=== PATIENT | female | born 1990 | race Caucasian/White ===

== ENCOUNTER 2016-10-09 23:36 | Inpatient (IN) | payer MEDICAID ==
[~2016-10-09] VITALS: Ht 152.4 cm; Wt 68.5 kg
[~2016-10-09 23:36] MED LIST: BENZ1TAB10 PO; DIVA250T25 PO; FERR-89 PO; LEVE500T53 PO; LITH300C3 PO; TRAZ-147 PO
[2016-10-10 00:24] LABS: ANION GAP 8 mmol/L (8-16); CARBON DIOXIDE 26 mmol/L (22-29); CHLORIDE 107 mmol/L (98-107); CREATININE 0.69 mg/dL (0.60-1.30); GLOMERULAR FILTR. RATE CALC > 60 mL/min (>60); POTASSIUM 3.9 mmol/L (3.5-5.1); SODIUM SERUM 141 mmol/L (136-145); UREA NITROGEN, BLOOD 15 mg/dL (7-18)
[2016-10-10 00:30] LABS: ALANINE AMINOTRANSFERASE 29 U/L (12-78); ALBUMIN 3.3 g/dL (3.4-5.0); ASPARTATE AMINOTRANSFERASE 13 U/L (15-37); BILIRUBIN,TOTAL 0.2 mg/dL (0.1-1.0); TOTAL PROTEIN, SERUM 6.3 g/dL (6.4-8.2)
[2016-10-10 00:34] LABS: BASOPHILS % (AUTO) 0.5 % (0.0-2.0); EOSINOPHILS % (AUTO) 5.5 % (1.0-6.0); HEMATOCRIT 33.9 % (36-46); HEMOGLOBIN 10.8 g/dL (12.0-16.0); LYMPHOCYTES % (AUTO) 47.4 % (22.0-44.0); MEAN CORPUSCULAR HEMOGLOBIN 25.9 pg (26.0-34.0); MEAN CORPUSCULAR HGB CONC 31.9 G/dL (31.0-37.0); MEAN CORPUSCULAR VOLUME 81 fL (80-100); MONOCYTES # (AUTO) 0.2 K/uL (0.1-1.0); MONOCYTES % (AUTO) 3.6 % (2.0-9.0); NEUTROPHILS # (AUTO) 2.8 K/uL (1.8-7.7); PLATELET COUNT (AUTO) 148 K/uL (150-450); RED BLOOD CELL COUNT(AUTO) 4.17 MIL/uL (4.00-5.20); RED CELL DISTRIBUTION WIDTH 13.5 % (11.5-14.5); WHITE BLOOD COUNT (AUTO) 6.4 K/uL (4.5-11.0)
[2016-10-10 08:43] VITALS: BP 127/96
[2016-10-10] MEDS ORDERED: IBUPROFEN 400 MG TABLET PO PRN (10:00)
[2016-10-10] MEDS ORDERED: ACETAMINOPHEN 325 MG TABLET PO PRN (10:00)
[2016-10-10] MEDS: FERROUS SULFATE 325 MG EC TABLET PO SCH ×2 (11:33→17:33)
[2016-10-10 12:52] LABS: ADD UA MICROSCOPIC NO; APPEARANCE,URINE CLEAR (CLEAR); GLUCOSE, URINE (UA) NEGATIVE (NEGATIVE); KETONES,URINE NEGATIVE (NEGATIVE); LEUKOCYTE ESTERASE ,URINE NEGATIVE (NEGATIVE); OCCULT BLOOD,URINE NEGATIVE (NEGATIVE); PH,URINE 7.5 (5.0-8.0); PROTEIN,URINE NEGATIVE (NEGATIVE)
[2016-10-10 17:19] VITALS: BP 123/85
[2016-10-10] MEDS ORDERED: DIVA500T35 PO (17:24)
[2016-10-10] MEDS: LevETIRAcetam 500 MG TABLET PO SCH (17:33)
[2016-10-11 00:25] VITALS: BP 132/71
[2016-10-11] MEDS: HALOPERIDOL 5 MG TABLET PO PRN ×2 (00:29→20:15)
[2016-10-11] MEDS: LORazepam 2 MG TABLET PO PRN ×2 (00:29→20:15)
[2016-10-11] MEDS: FERROUS SULFATE 325 MG EC TABLET PO SCH ×3 (06:34→16:16)
[2016-10-11 07:16] LABS: THYROID STIMULATING HORMONE 2.15 uIU/mL (0.36-3.74)
[2016-10-11 08:01] VITALS: BP 135/77
[2016-10-11] MEDS: LevETIRAcetam 500 MG TABLET PO SCH ×2 (09:22→16:16)
[2016-10-11 16:00] VITALS: BP 126/96
[2016-10-11] MEDS: MUPIROCIN CALCIUM 2% 22 GM OINTMENT NASAL SCH (16:16)
[2016-10-12] MEDS: FERROUS SULFATE 325 MG EC TABLET PO SCH ×3 (06:36→17:17)
[2016-10-12 06:56] VITALS: BP 103/60
[2016-10-12 08:01] VITALS: BP 126/81
[2016-10-12] MEDS: LevETIRAcetam 500 MG TABLET PO SCH ×2 (08:40→16:28)
[2016-10-12] MEDS: MUPIROCIN CALCIUM 2% 22 GM OINTMENT NASAL SCH ×2 (10:02→16:28)
[2016-10-12 17:12] VITALS: BP 112/74
[2016-10-12] MEDS: LORazepam 2 MG TABLET PO PRN (20:22)
[2016-10-12] MEDS: TraZODone HCL 100 MG TABLET PO SCH (21:00)
[2016-10-12] MEDS: PALIPERIDONE 3 MG ER TABLET PO SCH (21:00)
[2016-10-13] MEDS: FERROUS SULFATE 325 MG EC TABLET PO SCH ×3 (06:59→16:23)
[2016-10-13 07:04] VITALS: BP 111/59
[2016-10-13 08:01] VITALS: BP 130/98
[2016-10-13] MEDS: LevETIRAcetam 500 MG TABLET PO SCH ×2 (08:22→16:23)
[2016-10-13] MEDS: BENZTROPINE MESYLATE 1 MG TABLET PO SCH ×2 (08:22→16:23)
[2016-10-13] MEDS: MUPIROCIN CALCIUM 2% 22 GM OINTMENT NASAL SCH ×2 (08:23→16:23)
[2016-10-13] MEDS: LITHIUM CITRATE SOLUTION 8 MEQ/5 ML [8 MEQ = 300 MG] UDCUP PO SCH ×2 (10:03→16:23)
[2016-10-13] MEDS: VALPROIC ACID 250 MG CAPSULE PO SCH ×2 (10:03→16:23)
[2016-10-13] MEDS: HALOPERIDOL 5 MG TABLET PO PRN (14:48)
[2016-10-13] MEDS: LORazepam 2 MG TABLET PO PRN (14:49)
[2016-10-13 20:26] VITALS: BP 117/76
[2016-10-13] MEDS: PALIPERIDONE 3 MG ER TABLET PO SCH (20:49)
[2016-10-13] MEDS: TraZODone HCL 100 MG TABLET PO SCH (20:50)
[2016-10-14 06:08] VITALS: BP 128/65
[2016-10-14] MEDS: FERROUS SULFATE 325 MG EC TABLET PO SCH ×3 (06:43→17:23)
[2016-10-14] MEDS: VALPROIC ACID 250 MG CAPSULE PO SCH ×2 (08:29→17:23)
[2016-10-14] MEDS: LevETIRAcetam 500 MG TABLET PO SCH ×2 (08:29→17:23)
[2016-10-14] MEDS: BENZTROPINE MESYLATE 1 MG TABLET PO SCH ×2 (08:29→17:23)
[2016-10-14 08:30] VITALS: BP 117/78
[2016-10-14] MEDS: LITHIUM CITRATE SOLUTION 8 MEQ/5 ML [8 MEQ = 300 MG] UDCUP PO SCH ×2 (08:30→17:23)
[2016-10-14] MEDS: MUPIROCIN CALCIUM 2% 22 GM OINTMENT NASAL SCH ×2 (08:31→17:23)
[2016-10-14] MEDS: LORazepam 2 MG TABLET PO PRN (09:29)
[2016-10-14] MEDS: HALOPERIDOL 5 MG TABLET PO PRN (09:29)
[2016-10-14 16:59] VITALS: BP 119/70
[2016-10-14] MEDS: PALIPERIDONE 3 MG ER TABLET PO SCH (20:20)
[2016-10-14] MEDS: TraZODone HCL 100 MG TABLET PO SCH (20:20)
[2016-10-15 05:03] VITALS: BP 126/76
[2016-10-15] MEDS: FERROUS SULFATE 325 MG EC TABLET PO SCH ×3 (06:35→17:44)
[2016-10-15 08:00] VITALS: BP 111/83
[2016-10-15] MEDS: MUPIROCIN CALCIUM 2% 22 GM OINTMENT NASAL SCH ×2 (09:03→17:45)
[2016-10-15] MEDS: LITHIUM CITRATE SOLUTION 8 MEQ/5 ML [8 MEQ = 300 MG] UDCUP PO SCH ×2 (09:04→17:44)
[2016-10-15] MEDS: LevETIRAcetam 500 MG TABLET PO SCH ×2 (09:04→17:44)
[2016-10-15] MEDS: VALPROIC ACID 250 MG CAPSULE PO SCH ×2 (09:04→17:44)
[2016-10-15] MEDS: BENZTROPINE MESYLATE 1 MG TABLET PO SCH ×2 (09:04→17:44)
[2016-10-15] MEDS: LORazepam 2 MG TABLET PO PRN (09:33)
[2016-10-15] MEDS: HALOPERIDOL 5 MG TABLET PO PRN (09:33)
[2016-10-15 18:49] VITALS: BP 118/69
[2016-10-15] MEDS: TraZODone HCL 100 MG TABLET PO SCH (20:41)
[2016-10-15] MEDS: PALIPERIDONE 3 MG ER TABLET PO SCH (20:41)
[2016-10-16] MEDS: FERROUS SULFATE 325 MG EC TABLET PO SCH ×3 (07:02→18:28)
[2016-10-16 08:10] VITALS: BP 123/79
[2016-10-16] MEDS: VALPROIC ACID 250 MG CAPSULE PO SCH ×2 (10:41→16:13)
[2016-10-16] MEDS: LITHIUM CITRATE SOLUTION 8 MEQ/5 ML [8 MEQ = 300 MG] UDCUP PO SCH ×2 (10:41→16:13)
[2016-10-16] MEDS: BENZTROPINE MESYLATE 1 MG TABLET PO SCH ×2 (10:41→16:15)
[2016-10-16] MEDS: LevETIRAcetam 500 MG TABLET PO SCH ×2 (10:41→16:13)
[2016-10-16] MEDS: MUPIROCIN CALCIUM 2% 22 GM OINTMENT NASAL SCH ×2 (10:54→16:16)
[2016-10-16 17:13] VITALS: BP 113/75
[2016-10-16] MEDS: PALIPERIDONE 3 MG ER TABLET PO SCH (20:53)
[2016-10-16] MEDS: TraZODone HCL 100 MG TABLET PO SCH (20:53)
[2016-10-17] MEDS: FERROUS SULFATE 325 MG EC TABLET PO SCH ×3 (06:55→16:38)
[2016-10-17] MEDS: LITHIUM CITRATE SOLUTION 8 MEQ/5 ML [8 MEQ = 300 MG] UDCUP PO SCH ×2 (08:01→16:38)
[2016-10-17] MEDS: HALOPERIDOL 5 MG TABLET PO PRN (08:01)
[2016-10-17] MEDS: LORazepam 2 MG TABLET PO PRN (08:01)
[2016-10-17] MEDS: LevETIRAcetam 500 MG TABLET PO SCH ×2 (08:01→16:38)
[2016-10-17] MEDS: BENZTROPINE MESYLATE 1 MG TABLET PO SCH ×2 (08:01→16:38)
[2016-10-17] MEDS: NYSTATIN 30 GM CREAM TP SCH ×2 (08:02→16:40)
[2016-10-17] MEDS: VALPROIC ACID 250 MG CAPSULE PO SCH ×2 (08:02→16:38)
[2016-10-17] MEDS: PALIPERIDONE 3 MG ER TABLET PO SCH (20:29)
[2016-10-17] MEDS: TraZODone HCL 100 MG TABLET PO SCH (20:29)
[2016-10-18 04:40] VITALS: BP 115/70
[2016-10-18] MEDS: LORazepam 2 MG TABLET PO PRN (04:59)
[2016-10-18] MEDS: FERROUS SULFATE 325 MG EC TABLET PO SCH ×3 (06:44→17:04)
[2016-10-18 08:00] VITALS: BP 112/76
[2016-10-18] MEDS: NYSTATIN 30 GM CREAM TP SCH ×2 (09:00→16:09)
[2016-10-18] MEDS: VALPROIC ACID 250 MG CAPSULE PO SCH ×2 (09:12→16:08)
[2016-10-18] MEDS: BENZTROPINE MESYLATE 1 MG TABLET PO SCH ×2 (09:12→16:09)
[2016-10-18] MEDS: LITHIUM CITRATE SOLUTION 8 MEQ/5 ML [8 MEQ = 300 MG] UDCUP PO SCH ×2 (09:12→16:08)
[2016-10-18] MEDS: LevETIRAcetam 500 MG TABLET PO SCH ×2 (09:12→16:08)
[2016-10-18] MEDS: PALIPERIDONE 3 MG ER TABLET PO SCH (20:31)
[2016-10-18] MEDS: TraZODone HCL 100 MG TABLET PO SCH (20:31)
[2016-10-19] MEDS: FERROUS SULFATE 325 MG EC TABLET PO SCH ×3 (06:33→16:53)
[2016-10-19 07:02] VITALS: BP 125/78
[2016-10-19 08:30] VITALS: BP 123/91
[2016-10-19] MEDS: NYSTATIN 30 GM CREAM TP SCH ×2 (09:00→16:26)
[2016-10-19] MEDS: LITHIUM CITRATE SOLUTION 8 MEQ/5 ML [8 MEQ = 300 MG] UDCUP PO SCH ×2 (09:11→16:25)
[2016-10-19] MEDS: VALPROIC ACID 250 MG CAPSULE PO SCH ×2 (09:11→16:24)
[2016-10-19] MEDS: LevETIRAcetam 500 MG TABLET PO SCH ×2 (09:11→16:25)
[2016-10-19] MEDS: BENZTROPINE MESYLATE 1 MG TABLET PO SCH ×2 (09:14→16:24)
[2016-10-19] MEDS: LORazepam 2 MG TABLET PO PRN (12:56)
[2016-10-19] MEDS: HALOPERIDOL 5 MG TABLET PO PRN (12:56)
[2016-10-19 16:31] VITALS: BP 126/78
[2016-10-19] MEDS: TraZODone HCL 100 MG TABLET PO SCH (21:33)
[2016-10-19] MEDS: PALIPERIDONE 3 MG ER TABLET PO SCH (21:33)
[2016-10-20 05:05] VITALS: BP 120/75
[2016-10-20] MEDS: FERROUS SULFATE 325 MG EC TABLET PO SCH ×3 (06:53→16:01)
[2016-10-20 08:30] VITALS: BP 97/65
[2016-10-20] MEDS: LevETIRAcetam 500 MG TABLET PO SCH ×2 (09:57→16:01)
[2016-10-20] MEDS: HALOPERIDOL 5 MG TABLET PO PRN (09:57)
[2016-10-20] MEDS: BENZTROPINE MESYLATE 1 MG TABLET PO SCH ×2 (09:57→16:00)
[2016-10-20] MEDS: NYSTATIN 30 GM CREAM TP SCH ×2 (09:58→16:01)
[2016-10-20] MEDS: LITHIUM CITRATE SOLUTION 8 MEQ/5 ML [8 MEQ = 300 MG] UDCUP PO SCH ×2 (09:58→16:00)
[2016-10-20] MEDS: VALPROIC ACID 250 MG CAPSULE PO SCH ×2 (09:58→16:01)
[2016-10-20 17:27] VITALS: BP 115/68
[2016-10-20] MEDS: TraZODone HCL 100 MG TABLET PO SCH (21:35)
[2016-10-20] MEDS: PALIPERIDONE 3 MG ER TABLET PO SCH (21:35)
[2016-10-21 05:17] VITALS: BP 117/78
[2016-10-21] MEDS: FERROUS SULFATE 325 MG EC TABLET PO SCH ×3 (07:01→17:05)
[2016-10-21] MEDS: LORazepam 2 MG TABLET PO PRN (09:04)
[2016-10-21] MEDS: VALPROIC ACID 250 MG CAPSULE PO SCH ×2 (09:04→17:05)
[2016-10-21] MEDS: HALOPERIDOL 5 MG TABLET PO PRN (09:04)
[2016-10-21] MEDS: LevETIRAcetam 500 MG TABLET PO SCH ×2 (09:04→17:05)
[2016-10-21] MEDS: BENZTROPINE MESYLATE 1 MG TABLET PO SCH ×2 (09:04→17:05)
[2016-10-21] MEDS: LITHIUM CITRATE SOLUTION 8 MEQ/5 ML [8 MEQ = 300 MG] UDCUP PO SCH ×2 (09:05→17:05)
[2016-10-21] MEDS: NYSTATIN 30 GM CREAM TP SCH ×2 (09:08→17:05)
[2016-10-21 09:24] VITALS: BP 110/70
[2016-10-21 16:10] VITALS: BP 121/68
[2016-10-21] MEDS: TraZODone HCL 100 MG TABLET PO SCH (21:19)
[2016-10-21] MEDS: PALIPERIDONE 3 MG ER TABLET PO SCH (21:19)
[2016-10-22] MEDS: FERROUS SULFATE 325 MG EC TABLET PO SCH ×3 (06:36→16:59)
[2016-10-22] MEDS: BENZTROPINE MESYLATE 1 MG TABLET PO SCH ×2 (08:50→16:18)
[2016-10-22] MEDS: LevETIRAcetam 500 MG TABLET PO SCH ×2 (08:50→16:17)
[2016-10-22] MEDS: VALPROIC ACID 250 MG CAPSULE PO SCH ×2 (08:50→16:17)
[2016-10-22] MEDS: LITHIUM CITRATE SOLUTION 8 MEQ/5 ML [8 MEQ = 300 MG] UDCUP PO SCH ×2 (08:50→16:18)
[2016-10-22] MEDS: HALOPERIDOL 5 MG TABLET PO PRN (08:51)
[2016-10-22] MEDS: LORazepam 2 MG TABLET PO PRN (09:40)
[2016-10-22] MEDS: NYSTATIN 30 GM CREAM TP SCH ×2 (09:43→16:18)
[2016-10-22 09:53] VITALS: BP 108/73
[2016-10-22 17:16] VITALS: BP 129/86
[2016-10-22] MEDS: TraZODone HCL 100 MG TABLET PO SCH (20:30)
[2016-10-22] MEDS: PALIPERIDONE 3 MG ER TABLET PO SCH (20:30)
[2016-10-23] MEDS: FERROUS SULFATE 325 MG EC TABLET PO SCH ×3 (06:28→16:50)
[2016-10-23 07:03] VITALS: BP 124/67
[2016-10-23] MEDS: BENZTROPINE MESYLATE 1 MG TABLET PO SCH ×2 (09:30→16:50)
[2016-10-23] MEDS: LevETIRAcetam 500 MG TABLET PO SCH ×2 (09:30→16:50)
[2016-10-23] MEDS: VALPROIC ACID 250 MG CAPSULE PO SCH ×2 (09:30→16:50)
[2016-10-23] MEDS: LITHIUM CITRATE SOLUTION 8 MEQ/5 ML [8 MEQ = 300 MG] UDCUP PO SCH ×2 (09:30→16:50)
[2016-10-23] MEDS: NYSTATIN 30 GM CREAM TP SCH ×2 (09:31→17:41)
[2016-10-23 09:43] VITALS: BP 137/76
[2016-10-23 17:24] VITALS: BP 117/54
[2016-10-23] MEDS: PALIPERIDONE 3 MG ER TABLET PO SCH (20:38)
[2016-10-23] MEDS: TraZODone HCL 100 MG TABLET PO SCH (20:38)
[2016-10-24] MEDS: ZOLPIDEM TARTRATE 10 MG TABLET PO PRN (00:44)
[2016-10-24 00:45] VITALS: BP 115/66
[2016-10-24] MEDS: FERROUS SULFATE 325 MG EC TABLET PO SCH ×3 (06:55→16:43)
[2016-10-24 08:30] VITALS: BP 102/79
[2016-10-24] MEDS: LITHIUM CITRATE SOLUTION 8 MEQ/5 ML [8 MEQ = 300 MG] UDCUP PO SCH ×2 (08:57→16:43)
[2016-10-24] MEDS: LevETIRAcetam 500 MG TABLET PO SCH ×2 (08:57→16:43)
[2016-10-24] MEDS: BENZTROPINE MESYLATE 1 MG TABLET PO SCH ×2 (08:57→16:43)
[2016-10-24] MEDS: NYSTATIN 30 GM CREAM TP SCH ×2 (08:58→16:46)
[2016-10-24] MEDS: VALPROIC ACID 250 MG CAPSULE PO SCH ×2 (08:58→16:44)
[2016-10-24 17:23] VITALS: BP 125/61
[2016-10-24] MEDS: TraZODone HCL 100 MG TABLET PO SCH (20:24)
[2016-10-24] MEDS: PALIPERIDONE 3 MG ER TABLET PO SCH (20:24)
[2016-10-25] MEDS: ZOLPIDEM TARTRATE 10 MG TABLET PO PRN (03:01)
[2016-10-25 06:00] VITALS: BP 117/76
[2016-10-25] MEDS: FERROUS SULFATE 325 MG EC TABLET PO SCH ×3 (06:52→17:50)
[2016-10-25 08:05] LABS: LITHIUM 0.33 mmol/L (0.60-1.20)
[2016-10-25] MEDS: LevETIRAcetam 500 MG TABLET PO SCH ×2 (08:39→16:43)
[2016-10-25] MEDS: BENZTROPINE MESYLATE 1 MG TABLET PO SCH ×2 (08:39→16:43)
[2016-10-25] MEDS: LITHIUM CITRATE SOLUTION 8 MEQ/5 ML [8 MEQ = 300 MG] UDCUP PO SCH ×2 (08:40→16:43)
[2016-10-25] MEDS: VALPROIC ACID 250 MG CAPSULE PO SCH ×2 (08:41→16:43)
[2016-10-25] MEDS: NYSTATIN 30 GM CREAM TP SCH ×2 (08:42→16:44)
[2016-10-25 14:04] VITALS: BP 113/79
[2016-10-25 16:57] VITALS: BP 100/61
[2016-10-25] MEDS: TraZODone HCL 100 MG TABLET PO SCH (21:00)
[2016-10-25] MEDS: PALIPERIDONE 3 MG ER TABLET PO SCH (21:01)
[2016-10-26 03:33] VITALS: BP 109/72
[2016-10-26] MEDS: FERROUS SULFATE 325 MG EC TABLET PO SCH ×3 (06:23→17:04)
[2016-10-26] MEDS: LevETIRAcetam 500 MG TABLET PO SCH ×2 (09:22→17:04)
[2016-10-26] MEDS: LITHIUM CITRATE SOLUTION 8 MEQ/5 ML [8 MEQ = 300 MG] UDCUP PO SCH ×2 (09:22→17:05)
[2016-10-26] MEDS: BENZTROPINE MESYLATE 1 MG TABLET PO SCH ×2 (09:22→17:04)
[2016-10-26] MEDS: VALPROIC ACID 250 MG CAPSULE PO SCH ×2 (09:23→17:04)
[2016-10-26] MEDS: NYSTATIN 30 GM CREAM TP SCH ×2 (09:23→17:05)
[2016-10-26 09:52] VITALS: BP 109/65
[2016-10-26 17:08] VITALS: BP 129/71
[2016-10-26] MEDS: PALIPERIDONE 3 MG ER TABLET PO SCH (20:08)
[2016-10-26] MEDS: TraZODone HCL 100 MG TABLET PO SCH (20:09)
[2016-10-27] MEDS: FERROUS SULFATE 325 MG EC TABLET PO SCH ×3 (06:57→17:31)
[2016-10-27 08:05] VITALS: BP 114/69
[2016-10-27] MEDS: BENZTROPINE MESYLATE 1 MG TABLET PO SCH ×2 (08:28→16:37)
[2016-10-27] MEDS: LevETIRAcetam 500 MG TABLET PO SCH ×2 (08:28→16:37)
[2016-10-27] MEDS: VALPROIC ACID 250 MG CAPSULE PO SCH ×2 (08:29→16:37)
[2016-10-27] MEDS: LITHIUM CITRATE SOLUTION 8 MEQ/5 ML [8 MEQ = 300 MG] UDCUP PO SCH ×2 (08:29→16:38)
[2016-10-27] MEDS: NYSTATIN 30 GM CREAM TP SCH ×2 (08:30→16:39)
[2016-10-27 17:05] VITALS: BP 117/70
[2016-10-27] MEDS: PALIPERIDONE 3 MG ER TABLET PO SCH (20:20)
[2016-10-27] MEDS: TraZODone HCL 100 MG TABLET PO SCH (20:20)
[2016-10-28 03:54] VITALS: BP 106/77
[2016-10-28] MEDS: FERROUS SULFATE 325 MG EC TABLET PO SCH ×3 (06:43→17:27)
[2016-10-28 08:00] VITALS: BP 110/65
[2016-10-28] MEDS: BENZTROPINE MESYLATE 1 MG TABLET PO SCH ×2 (08:14→16:29)
[2016-10-28] MEDS: LITHIUM CITRATE SOLUTION 8 MEQ/5 ML [8 MEQ = 300 MG] UDCUP PO SCH ×3 (08:14→16:29)
[2016-10-28] MEDS: VALPROIC ACID 250 MG CAPSULE PO SCH ×2 (08:14→16:29)
[2016-10-28] MEDS: LevETIRAcetam 500 MG TABLET PO SCH ×2 (08:15→16:29)
[2016-10-28] MEDS: NYSTATIN 30 GM CREAM TP SCH ×2 (10:22→16:29)
[2016-10-28 17:48] VITALS: BP 129/77
[2016-10-28] MEDS: PALIPERIDONE 3 MG ER TABLET PO SCH (20:23)
[2016-10-28] MEDS: TraZODone HCL 100 MG TABLET PO SCH (20:24)
[2016-10-29] MEDS: FERROUS SULFATE 325 MG EC TABLET PO SCH ×3 (06:41→17:38)
[2016-10-29 07:28] VITALS: BP 108/66
[2016-10-29] MEDS: NYSTATIN 30 GM CREAM TP SCH ×2 (09:00→16:02)
[2016-10-29] MEDS: VALPROIC ACID 250 MG CAPSULE PO SCH ×2 (09:03→16:01)
[2016-10-29] MEDS: LITHIUM CITRATE SOLUTION 8 MEQ/5 ML [8 MEQ = 300 MG] UDCUP PO SCH ×3 (09:03→16:00)
[2016-10-29] MEDS: LevETIRAcetam 500 MG TABLET PO SCH ×2 (09:03→16:00)
[2016-10-29] MEDS: BENZTROPINE MESYLATE 1 MG TABLET PO SCH ×2 (09:03→16:00)
[2016-10-29 10:31] VITALS: BP 130/72
[2016-10-29 16:35] VITALS: BP 123/78
[2016-10-29] MEDS: TraZODone HCL 100 MG TABLET PO SCH (20:38)
[2016-10-29] MEDS: PALIPERIDONE 3 MG ER TABLET PO SCH (20:39)
[2016-10-30 05:44] VITALS: BP 120/64
[2016-10-30] MEDS: FERROUS SULFATE 325 MG EC TABLET PO SCH ×3 (06:36→17:20)
[2016-10-30 08:06] VITALS: BP 132/84
[2016-10-30] MEDS: VALPROIC ACID 250 MG CAPSULE PO SCH ×2 (08:22→16:47)
[2016-10-30] MEDS: LevETIRAcetam 500 MG TABLET PO SCH ×2 (08:22→16:47)
[2016-10-30] MEDS: LITHIUM CITRATE SOLUTION 8 MEQ/5 ML [8 MEQ = 300 MG] UDCUP PO SCH ×3 (08:22→16:47)
[2016-10-30] MEDS: BENZTROPINE MESYLATE 1 MG TABLET PO SCH ×2 (08:22→16:48)
[2016-10-30] MEDS: LORazepam 2 MG TABLET PO PRN (09:01)
[2016-10-30] MEDS: NYSTATIN 30 GM CREAM TP SCH ×2 (11:51→16:46)
[2016-10-30 17:58] VITALS: BP 119/79
[2016-10-30] MEDS: PALIPERIDONE 3 MG ER TABLET PO SCH (20:23)
[2016-10-30] MEDS: TraZODone HCL 100 MG TABLET PO SCH (20:23)
[2016-10-31 04:59] VITALS: BP 113/72
[2016-10-31] MEDS: FERROUS SULFATE 325 MG EC TABLET PO SCH ×3 (06:48→17:25)
[2016-10-31 08:05] VITALS: BP 105/57
[2016-10-31] MEDS: LevETIRAcetam 500 MG TABLET PO SCH ×2 (10:35→16:41)
[2016-10-31] MEDS: BENZTROPINE MESYLATE 1 MG TABLET PO SCH ×2 (10:35→16:42)
[2016-10-31] MEDS: LITHIUM CITRATE SOLUTION 8 MEQ/5 ML [8 MEQ = 300 MG] UDCUP PO SCH ×3 (10:35→16:42)
[2016-10-31] MEDS: VALPROIC ACID 250 MG CAPSULE PO SCH ×2 (10:36→16:42)
[2016-10-31] MEDS: NYSTATIN 30 GM CREAM TP SCH ×2 (10:36→16:42)
[2016-10-31 17:59] VITALS: BP 106/64
[2016-10-31] MEDS: PALIPERIDONE 3 MG ER TABLET PO SCH (20:07)
[2016-10-31] MEDS: TraZODone HCL 100 MG TABLET PO SCH (20:07)
[2016-11-01 04:50] VITALS: BP 111/65
[2016-11-01] MEDS: FERROUS SULFATE 325 MG EC TABLET PO SCH ×3 (06:56→16:53)
[2016-11-01 08:00] VITALS: BP 118/78
[2016-11-01] MEDS: LITHIUM CITRATE SOLUTION 8 MEQ/5 ML [8 MEQ = 300 MG] UDCUP PO SCH ×2 (09:48→16:25)
[2016-11-01] MEDS: NYSTATIN 30 GM CREAM TP SCH ×2 (09:49→16:27)
[2016-11-01] MEDS: LevETIRAcetam 500 MG TABLET PO SCH ×2 (09:49→16:25)
[2016-11-01] MEDS: HALOPERIDOL 5 MG TABLET PO PRN (09:49)
[2016-11-01] MEDS: BENZTROPINE MESYLATE 1 MG TABLET PO SCH ×2 (09:49→16:25)
[2016-11-01] MEDS: VALPROIC ACID 250 MG CAPSULE PO SCH ×2 (09:49→16:25)
[2016-11-01 16:25] VITALS: BP 123/63
[2016-11-01] MEDS: TraZODone HCL 100 MG TABLET PO SCH (20:30)
[2016-11-01] MEDS: PALIPERIDONE 3 MG ER TABLET PO SCH (20:31)
[2016-11-02 06:29] VITALS: BP 104/68
[2016-11-02] MEDS: FERROUS SULFATE 325 MG EC TABLET PO SCH ×3 (06:53→18:22)
[2016-11-02] MEDS: VALPROIC ACID 250 MG CAPSULE PO SCH ×2 (09:17→16:02)
[2016-11-02] MEDS: LITHIUM CITRATE SOLUTION 8 MEQ/5 ML [8 MEQ = 300 MG] UDCUP PO SCH ×2 (09:17→16:02)
[2016-11-02] MEDS: LevETIRAcetam 500 MG TABLET PO SCH ×2 (09:17→16:02)
[2016-11-02] MEDS: NYSTATIN 30 GM CREAM TP SCH ×2 (09:18→16:02)
[2016-11-02] MEDS: BENZTROPINE MESYLATE 1 MG TABLET PO SCH ×2 (09:18→16:02)
[2016-11-02 10:27] VITALS: BP 113/65
[2016-11-02 19:45] VITALS: BP 125/78
[2016-11-02] MEDS: TraZODone HCL 100 MG TABLET PO SCH (20:06)
[2016-11-02] MEDS: PALIPERIDONE 3 MG ER TABLET PO SCH (20:06)
[2016-11-03 05:55] VITALS: BP 122/63
[2016-11-03] MEDS: FERROUS SULFATE 325 MG EC TABLET PO SCH ×3 (06:40→17:27)
[2016-11-03] MEDS: NYSTATIN 30 GM CREAM TP SCH ×2 (09:00→16:20)
[2016-11-03] MEDS: LevETIRAcetam 500 MG TABLET PO SCH ×2 (09:52→16:18)
[2016-11-03] MEDS: LITHIUM CITRATE SOLUTION 8 MEQ/5 ML [8 MEQ = 300 MG] UDCUP PO SCH ×2 (09:52→16:19)
[2016-11-03] MEDS: BENZTROPINE MESYLATE 1 MG TABLET PO SCH ×2 (09:52→16:18)
[2016-11-03] MEDS: VALPROIC ACID 250 MG CAPSULE PO SCH ×2 (09:52→16:18)
[2016-11-03 13:32] VITALS: BP 105/72
[2016-11-03 16:45] VITALS: BP 120/68
[2016-11-03] MEDS: PALIPERIDONE 3 MG ER TABLET PO SCH (20:13)
[2016-11-03] MEDS: TraZODone HCL 100 MG TABLET PO SCH (20:13)
[2016-11-04 06:52] VITALS: BP 113/58
[2016-11-04] MEDS: FERROUS SULFATE 325 MG EC TABLET PO SCH ×3 (06:54→18:09)
[2016-11-04 08:00] VITALS: BP 110/75
[2016-11-04] MEDS: BENZTROPINE MESYLATE 1 MG TABLET PO SCH ×2 (08:26→18:09)
[2016-11-04] MEDS: LevETIRAcetam 500 MG TABLET PO SCH ×2 (08:26→18:08)
[2016-11-04] MEDS: VALPROIC ACID 250 MG CAPSULE PO SCH ×2 (08:26→18:09)
[2016-11-04] MEDS: LITHIUM CITRATE SOLUTION 8 MEQ/5 ML [8 MEQ = 300 MG] UDCUP PO SCH ×2 (08:27→18:08)
[2016-11-04] MEDS: NYSTATIN 30 GM CREAM TP SCH ×2 (08:27→18:09)
[2016-11-04 16:17] VITALS: BP 112/66
[2016-11-04] MEDS: TraZODone HCL 100 MG TABLET PO SCH (21:47)
[2016-11-04] MEDS: PALIPERIDONE 3 MG ER TABLET PO SCH (21:47)
[2016-11-05 02:33] VITALS: BP 101/63
[2016-11-05] MEDS: FERROUS SULFATE 325 MG EC TABLET PO SCH ×3 (06:36→16:10)
[2016-11-05 08:00] VITALS: BP 133/78
[2016-11-05] MEDS: VALPROIC ACID 250 MG CAPSULE PO SCH ×2 (08:15→16:10)
[2016-11-05] MEDS: BENZTROPINE MESYLATE 1 MG TABLET PO SCH ×2 (08:15→16:10)
[2016-11-05] MEDS: LevETIRAcetam 500 MG TABLET PO SCH ×2 (08:15→16:10)
[2016-11-05] MEDS: LITHIUM CITRATE SOLUTION 8 MEQ/5 ML [8 MEQ = 300 MG] UDCUP PO SCH ×2 (08:15→16:11)
[2016-11-05] MEDS: NYSTATIN 30 GM CREAM TP SCH ×2 (12:01→16:10)
[2016-11-05 16:00] VITALS: BP 116/67
[2016-11-05] MEDS: PALIPERIDONE 3 MG ER TABLET PO SCH (20:13)
[2016-11-05] MEDS: TraZODone HCL 100 MG TABLET PO SCH (20:13)
[2016-11-06] MEDS: FERROUS SULFATE 325 MG EC TABLET PO SCH ×3 (06:57→16:02)
[2016-11-06 08:46] VITALS: BP 116/71
[2016-11-06] MEDS: LevETIRAcetam 500 MG TABLET PO SCH ×2 (08:51→16:02)
[2016-11-06] MEDS: VALPROIC ACID 250 MG CAPSULE PO SCH ×2 (08:51→16:02)
[2016-11-06] MEDS: LITHIUM CITRATE SOLUTION 8 MEQ/5 ML [8 MEQ = 300 MG] UDCUP PO SCH ×2 (08:51→16:01)
[2016-11-06] MEDS: BENZTROPINE MESYLATE 1 MG TABLET PO SCH ×2 (08:51→16:02)
[2016-11-06] MEDS: NYSTATIN 30 GM CREAM TP SCH ×2 (09:00→16:08)
[2016-11-06 16:52] VITALS: BP 125/76
[2016-11-06] MEDS: TraZODone HCL 100 MG TABLET PO SCH (20:15)
[2016-11-06] MEDS: PALIPERIDONE 3 MG ER TABLET PO SCH (20:15)
[2016-11-07] MEDS: FERROUS SULFATE 325 MG EC TABLET PO SCH ×3 (06:36→17:06)
[2016-11-07 08:05] VITALS: BP 116/72
[2016-11-07] MEDS: VALPROIC ACID 250 MG CAPSULE PO SCH ×2 (08:52→16:08)
[2016-11-07] MEDS: LITHIUM CITRATE SOLUTION 8 MEQ/5 ML [8 MEQ = 300 MG] UDCUP PO SCH ×2 (08:52→16:08)
[2016-11-07] MEDS: BENZTROPINE MESYLATE 1 MG TABLET PO SCH ×2 (08:52→16:08)
[2016-11-07] MEDS: LevETIRAcetam 500 MG TABLET PO SCH ×2 (08:52→16:07)
[2016-11-07] MEDS: NYSTATIN 30 GM CREAM TP SCH ×2 (11:45→16:08)
[2016-11-07 16:17] VITALS: BP 98/55
[2016-11-07] MEDS: HALOPERIDOL 5 MG TABLET PO PRN (16:43)
[2016-11-07] MEDS: TraZODone HCL 100 MG TABLET PO SCH (21:00)
[2016-11-07] MEDS: PALIPERIDONE 3 MG ER TABLET PO SCH (21:01)
[2016-11-08] MEDS: FERROUS SULFATE 325 MG EC TABLET PO SCH ×3 (06:36→17:48)
[2016-11-08 08:07] VITALS: BP 112/66
[2016-11-08] MEDS: LITHIUM CITRATE SOLUTION 8 MEQ/5 ML [8 MEQ = 300 MG] UDCUP PO SCH ×2 (08:50→16:08)
[2016-11-08] MEDS: BENZTROPINE MESYLATE 1 MG TABLET PO SCH ×2 (08:50→16:09)
[2016-11-08] MEDS: VALPROIC ACID 250 MG CAPSULE PO SCH ×2 (08:50→16:08)
[2016-11-08] MEDS: LevETIRAcetam 500 MG TABLET PO SCH ×2 (08:50→16:09)
[2016-11-08] MEDS: NYSTATIN 30 GM CREAM TP SCH ×2 (12:03→16:08)
[2016-11-08 16:28] VITALS: BP 131/78
[2016-11-08] MEDS: TraZODone HCL 100 MG TABLET PO SCH (21:02)
[2016-11-08] MEDS: PALIPERIDONE 3 MG ER TABLET PO SCH (21:02)
[2016-11-09] MEDS: FERROUS SULFATE 325 MG EC TABLET PO SCH ×3 (06:38→17:31)
[2016-11-09 08:07] VITALS: BP 146/86
[2016-11-09] MEDS: BENZTROPINE MESYLATE 1 MG TABLET PO SCH ×2 (08:18→16:04)
[2016-11-09] MEDS: LevETIRAcetam 500 MG TABLET PO SCH ×2 (08:18→16:04)
[2016-11-09] MEDS: LITHIUM CITRATE SOLUTION 8 MEQ/5 ML [8 MEQ = 300 MG] UDCUP PO SCH ×2 (08:19→16:03)
[2016-11-09] MEDS: VALPROIC ACID 250 MG CAPSULE PO SCH ×2 (08:19→16:04)
[2016-11-09] MEDS: NYSTATIN 30 GM CREAM TP SCH ×2 (08:20→16:04)
[2016-11-09 16:12] VITALS: BP 115/77
[2016-11-09] MEDS: TraZODone HCL 100 MG TABLET PO SCH (21:04)
[2016-11-09] MEDS: PALIPERIDONE 3 MG ER TABLET PO SCH (21:04)
[2016-11-10] MEDS: FERROUS SULFATE 325 MG EC TABLET PO SCH ×3 (06:33→18:13)
[2016-11-10 08:00] VITALS: BP 126/62
[2016-11-10] MEDS: VALPROIC ACID 250 MG CAPSULE PO SCH ×2 (09:34→18:14)
[2016-11-10] MEDS: LevETIRAcetam 500 MG TABLET PO SCH ×2 (09:34→18:14)
[2016-11-10] MEDS: BENZTROPINE MESYLATE 1 MG TABLET PO SCH ×2 (09:34→18:14)
[2016-11-10] MEDS: LITHIUM CITRATE SOLUTION 8 MEQ/5 ML [8 MEQ = 300 MG] UDCUP PO SCH ×2 (09:35→18:13)
[2016-11-10] MEDS: NYSTATIN 30 GM CREAM TP SCH ×2 (12:05→18:14)
[2016-11-10 16:23] VITALS: BP 118/71
[2016-11-10] MEDS: MUPIROCIN CALCIUM 2% 22 GM OINTMENT NASAL SCH (18:19)
[2016-11-10] MEDS: TraZODone HCL 100 MG TABLET PO SCH (20:51)
[2016-11-10] MEDS: PALIPERIDONE 3 MG ER TABLET PO SCH (20:51)
[2016-11-11] MEDS: FERROUS SULFATE 325 MG EC TABLET PO SCH ×3 (06:42→16:24)
[2016-11-11 08:00] VITALS: BP 106/71
[2016-11-11] MEDS: MUPIROCIN CALCIUM 2% 22 GM OINTMENT NASAL SCH ×2 (09:00→16:24)
[2016-11-11] MEDS: NYSTATIN 30 GM CREAM TP SCH ×2 (09:00→16:24)
[2016-11-11] MEDS: BENZTROPINE MESYLATE 1 MG TABLET PO SCH ×2 (09:14→16:24)
[2016-11-11] MEDS: VALPROIC ACID 250 MG CAPSULE PO SCH ×2 (09:14→16:24)
[2016-11-11] MEDS: LevETIRAcetam 500 MG TABLET PO SCH ×2 (09:14→16:24)
[2016-11-11] MEDS: LITHIUM CITRATE SOLUTION 8 MEQ/5 ML [8 MEQ = 300 MG] UDCUP PO SCH ×2 (09:15→16:24)
[2016-11-11 17:43] VITALS: BP 113/74
[2016-11-11] MEDS: PALIPERIDONE 3 MG ER TABLET PO SCH (20:34)
[2016-11-11] MEDS: TraZODone HCL 100 MG TABLET PO SCH (20:34)
[2016-11-12] MEDS: FERROUS SULFATE 325 MG EC TABLET PO SCH ×3 (06:48→17:24)
[2016-11-12 08:00] VITALS: BP 130/62
[2016-11-12] MEDS: VALPROIC ACID 250 MG CAPSULE PO SCH ×2 (09:18→16:14)
[2016-11-12] MEDS: LITHIUM CITRATE SOLUTION 8 MEQ/5 ML [8 MEQ = 300 MG] UDCUP PO SCH ×2 (09:18→16:15)
[2016-11-12] MEDS: BENZTROPINE MESYLATE 1 MG TABLET PO SCH ×2 (09:18→16:14)
[2016-11-12] MEDS: LevETIRAcetam 500 MG TABLET PO SCH ×2 (09:18→16:14)
[2016-11-12] MEDS: MUPIROCIN CALCIUM 2% 22 GM OINTMENT NASAL SCH ×2 (12:46→16:15)
[2016-11-12] MEDS: NYSTATIN 30 GM CREAM TP SCH ×2 (12:46→16:15)
[2016-11-12] MEDS: LORazepam 2 MG TABLET PO PRN (15:06)
[2016-11-12 16:32] VITALS: BP 121/76
[2016-11-12] MEDS: TraZODone HCL 100 MG TABLET PO SCH (19:57)
[2016-11-12] MEDS: PALIPERIDONE 3 MG ER TABLET PO SCH (19:57)
[2016-11-13] MEDS: FERROUS SULFATE 325 MG EC TABLET PO SCH ×3 (06:44→17:15)
[2016-11-13] MEDS: LevETIRAcetam 500 MG TABLET PO SCH ×2 (08:33→16:22)
[2016-11-13] MEDS: BENZTROPINE MESYLATE 1 MG TABLET PO SCH ×2 (08:33→16:21)
[2016-11-13] MEDS: VALPROIC ACID 250 MG CAPSULE PO SCH ×2 (08:34→16:21)
[2016-11-13] MEDS: LITHIUM CITRATE SOLUTION 8 MEQ/5 ML [8 MEQ = 300 MG] UDCUP PO SCH ×2 (08:34→16:23)
[2016-11-13] MEDS: NYSTATIN 30 GM CREAM TP SCH ×2 (08:35→16:24)
[2016-11-13] MEDS: MUPIROCIN CALCIUM 2% 22 GM OINTMENT NASAL SCH ×2 (08:35→16:21)
[2016-11-13 10:14] VITALS: BP 111/70
[2016-11-13 18:00] VITALS: BP 110/66
[2016-11-13] MEDS: TraZODone HCL 100 MG TABLET PO SCH (20:19)
[2016-11-13] MEDS: PALIPERIDONE 3 MG ER TABLET PO SCH (20:20)
[2016-11-14] MEDS: FERROUS SULFATE 325 MG EC TABLET PO SCH ×3 (06:44→19:02)
[2016-11-14] MEDS: LITHIUM CITRATE SOLUTION 8 MEQ/5 ML [8 MEQ = 300 MG] UDCUP PO SCH ×2 (08:50→16:07)
[2016-11-14] MEDS: LevETIRAcetam 500 MG TABLET PO SCH ×2 (08:50→16:08)
[2016-11-14] MEDS: BENZTROPINE MESYLATE 1 MG TABLET PO SCH ×2 (08:50→16:09)
[2016-11-14] MEDS: MUPIROCIN CALCIUM 2% 22 GM OINTMENT NASAL SCH ×2 (08:51→19:02)
[2016-11-14] MEDS: VALPROIC ACID 250 MG CAPSULE PO SCH ×2 (08:51→16:07)
[2016-11-14] MEDS: NYSTATIN 30 GM CREAM TP SCH ×2 (08:52→19:03)
[2016-11-14 12:24] VITALS: BP 11/79
[2016-11-14 18:00] VITALS: BP 113/76
[2016-11-14] MEDS: PALIPERIDONE 3 MG ER TABLET PO SCH (20:46)
[2016-11-14] MEDS: TraZODone HCL 100 MG TABLET PO SCH (20:46)
[2016-11-15] MEDS: FERROUS SULFATE 325 MG EC TABLET PO SCH ×3 (06:37→16:11)
[2016-11-15] MEDS: BENZTROPINE MESYLATE 1 MG TABLET PO SCH ×2 (08:23→16:11)
[2016-11-15] MEDS: LevETIRAcetam 500 MG TABLET PO SCH ×2 (08:23→16:11)
[2016-11-15] MEDS: VALPROIC ACID 250 MG CAPSULE PO SCH ×2 (08:23→16:11)
[2016-11-15] MEDS: LITHIUM CITRATE SOLUTION 8 MEQ/5 ML [8 MEQ = 300 MG] UDCUP PO SCH ×2 (08:24→16:11)
[2016-11-15] MEDS: NYSTATIN 30 GM CREAM TP SCH ×2 (08:24→16:11)
[2016-11-15] MEDS: MUPIROCIN CALCIUM 2% 22 GM OINTMENT NASAL SCH (08:24)
[2016-11-15 10:08] VITALS: BP 106/64
[2016-11-15 17:21] VITALS: BP 114/74
[2016-11-15] MEDS: PALIPERIDONE 3 MG ER TABLET PO SCH (20:31)
[2016-11-15] MEDS: TraZODone HCL 100 MG TABLET PO SCH (20:31)
[2016-11-16 05:09] VITALS: BP 114/77
[2016-11-16] MEDS: FERROUS SULFATE 325 MG EC TABLET PO SCH ×3 (07:02→16:50)
[2016-11-16 08:00] VITALS: BP 111/62
[2016-11-16] MEDS: LevETIRAcetam 500 MG TABLET PO SCH ×2 (08:40→16:50)
[2016-11-16] MEDS: VALPROIC ACID 250 MG CAPSULE PO SCH ×2 (08:40→16:50)
[2016-11-16] MEDS: BENZTROPINE MESYLATE 1 MG TABLET PO SCH ×2 (08:40→16:50)
[2016-11-16] MEDS: LITHIUM CITRATE SOLUTION 8 MEQ/5 ML [8 MEQ = 300 MG] UDCUP PO SCH ×2 (08:41→16:50)
[2016-11-16] MEDS: NYSTATIN 30 GM CREAM TP SCH ×2 (08:41→16:52)
[2016-11-16 19:32] VITALS: BP 97/65
[2016-11-16] MEDS: PALIPERIDONE 3 MG ER TABLET PO SCH (21:02)
[2016-11-16] MEDS: TraZODone HCL 100 MG TABLET PO SCH (21:02)
[2016-11-17 06:34] VITALS: BP 101/65
[2016-11-17] MEDS: FERROUS SULFATE 325 MG EC TABLET PO SCH ×3 (07:07→17:26)
[2016-11-17 08:00] VITALS: BP 113/66
[2016-11-17] MEDS: LITHIUM CITRATE SOLUTION 8 MEQ/5 ML [8 MEQ = 300 MG] UDCUP PO SCH ×2 (09:08→16:04)
[2016-11-17] MEDS: VALPROIC ACID 250 MG CAPSULE PO SCH ×2 (09:08→16:04)
[2016-11-17] MEDS: BENZTROPINE MESYLATE 1 MG TABLET PO SCH ×2 (09:08→16:04)
[2016-11-17] MEDS: LevETIRAcetam 500 MG TABLET PO SCH ×2 (09:08→16:04)
[2016-11-17 16:00] VITALS: BP 126/78
[2016-11-17] MEDS: TraZODone HCL 100 MG TABLET PO SCH (20:25)
[2016-11-17] MEDS: PALIPERIDONE 3 MG ER TABLET PO SCH (20:25)
[2016-11-18 06:37] VITALS: BP 118/79
[2016-11-18] MEDS: FERROUS SULFATE 325 MG EC TABLET PO SCH ×3 (07:01→17:59)
[2016-11-18] MEDS: LevETIRAcetam 500 MG TABLET PO SCH ×2 (09:01→17:59)
[2016-11-18] MEDS: BENZTROPINE MESYLATE 1 MG TABLET PO SCH ×2 (09:01→17:59)
[2016-11-18] MEDS: LITHIUM CITRATE SOLUTION 8 MEQ/5 ML [8 MEQ = 300 MG] UDCUP PO SCH ×2 (09:02→18:00)
[2016-11-18] MEDS: VALPROIC ACID 250 MG CAPSULE PO SCH ×2 (09:02→18:00)
[2016-11-18 10:29] VITALS: BP 107/68
[2016-11-18 16:00] VITALS: BP 125/76
[2016-11-18] MEDS: PALIPERIDONE 3 MG ER TABLET PO SCH (20:23)
[2016-11-18] MEDS: TraZODone HCL 100 MG TABLET PO SCH (20:23)
[2016-11-19] MEDS: FERROUS SULFATE 325 MG EC TABLET PO SCH ×3 (06:33→17:22)
[2016-11-19 08:00] VITALS: BP 127/76
[2016-11-19] MEDS: LevETIRAcetam 500 MG TABLET PO SCH ×2 (09:02→17:21)
[2016-11-19] MEDS: BENZTROPINE MESYLATE 1 MG TABLET PO SCH ×2 (09:02→17:22)
[2016-11-19] MEDS: VALPROIC ACID 250 MG CAPSULE PO SCH ×2 (09:02→17:22)
[2016-11-19] MEDS: LITHIUM CITRATE SOLUTION 8 MEQ/5 ML [8 MEQ = 300 MG] UDCUP PO SCH ×2 (09:03→17:22)
[2016-11-19 16:31] VITALS: BP 123/78
[2016-11-19] MEDS: TraZODone HCL 100 MG TABLET PO SCH (21:35)
[2016-11-19] MEDS: PALIPERIDONE 3 MG ER TABLET PO SCH (21:36)
[2016-11-20] MEDS: FERROUS SULFATE 325 MG EC TABLET PO SCH ×3 (07:06→16:09)
[2016-11-20] MEDS: BENZTROPINE MESYLATE 1 MG TABLET PO SCH ×2 (08:14→16:09)
[2016-11-20] MEDS: LevETIRAcetam 500 MG TABLET PO SCH ×2 (08:14→16:09)
[2016-11-20] MEDS: VALPROIC ACID 250 MG CAPSULE PO SCH ×2 (08:14→16:09)
[2016-11-20] MEDS: LITHIUM CITRATE SOLUTION 8 MEQ/5 ML [8 MEQ = 300 MG] UDCUP PO SCH ×2 (08:15→16:08)
[2016-11-20 08:31] VITALS: BP 122/84
[2016-11-20 17:01] VITALS: BP 116/71
[2016-11-20] MEDS: TraZODone HCL 100 MG TABLET PO SCH (21:31)
[2016-11-20] MEDS: PALIPERIDONE 3 MG ER TABLET PO SCH (21:31)
[2016-11-21 03:30] VITALS: BP 102/70
[2016-11-21] MEDS: FERROUS SULFATE 325 MG EC TABLET PO SCH ×3 (06:58→16:30)
[2016-11-21 08:00] VITALS: BP 120/69
[2016-11-21] MEDS: BENZTROPINE MESYLATE 1 MG TABLET PO SCH ×2 (09:29→16:23)
[2016-11-21] MEDS: LITHIUM CITRATE SOLUTION 8 MEQ/5 ML [8 MEQ = 300 MG] UDCUP PO SCH ×2 (09:29→16:24)
[2016-11-21] MEDS: LevETIRAcetam 500 MG TABLET PO SCH ×2 (09:29→16:23)
[2016-11-21] MEDS: VALPROIC ACID 250 MG CAPSULE PO SCH ×2 (09:29→16:23)
[2016-11-21 17:01] VITALS: BP 116/78
[2016-11-21] MEDS: PALIPERIDONE 3 MG ER TABLET PO SCH (20:37)
[2016-11-21] MEDS: TraZODone HCL 100 MG TABLET PO SCH (20:37)
[2016-11-22 00:15] VITALS: BP 118/72
[2016-11-22] MEDS: ZOLPIDEM TARTRATE 10 MG TABLET PO PRN (00:21)
[2016-11-22] MEDS: FERROUS SULFATE 325 MG EC TABLET PO SCH ×3 (06:53→16:38)
[2016-11-22 08:05] VITALS: BP 122/76
[2016-11-22] MEDS: BENZTROPINE MESYLATE 1 MG TABLET PO SCH ×2 (08:53→16:18)
[2016-11-22] MEDS: LevETIRAcetam 500 MG TABLET PO SCH ×2 (08:53→16:18)
[2016-11-22] MEDS: VALPROIC ACID 250 MG CAPSULE PO SCH ×2 (08:53→16:18)
[2016-11-22] MEDS: LITHIUM CITRATE SOLUTION 8 MEQ/5 ML [8 MEQ = 300 MG] UDCUP PO SCH ×2 (08:53→16:18)
[2016-11-22 16:54] VITALS: BP 102/64
[2016-11-22] MEDS: TraZODone HCL 100 MG TABLET PO SCH (20:24)
[2016-11-22] MEDS: PALIPERIDONE 3 MG ER TABLET PO SCH (20:24)
[2016-11-22] MEDS: LORazepam 2 MG TABLET PO PRN (21:04)
[2016-11-22] MEDS: HALOPERIDOL 5 MG TABLET PO PRN (21:04)
[2016-11-23] MEDS: FERROUS SULFATE 325 MG EC TABLET PO SCH ×3 (06:05→16:18)
[2016-11-23 08:01] VITALS: BP 102/59
[2016-11-23] MEDS: LITHIUM CITRATE SOLUTION 8 MEQ/5 ML [8 MEQ = 300 MG] UDCUP PO SCH ×2 (11:04→16:19)
[2016-11-23] MEDS: BENZTROPINE MESYLATE 1 MG TABLET PO SCH ×2 (11:04→16:18)
[2016-11-23] MEDS: LevETIRAcetam 500 MG TABLET PO SCH ×2 (11:04→16:19)
[2016-11-23] MEDS: VALPROIC ACID 250 MG CAPSULE PO SCH ×2 (11:04→16:18)
[2016-11-23] MEDS ORDERED: TUBERCULIN, PURIFIED PROTEIN DERIVATIVE 5 TU/0.1 ML SYG ID ONE (17:00)
[2016-11-23 18:13] VITALS: BP 119/78
[2016-11-23] MEDS: TraZODone HCL 100 MG TABLET PO SCH (21:42)
[2016-11-23] MEDS: PALIPERIDONE 3 MG ER TABLET PO SCH (21:42)
[2016-11-24] MEDS: FERROUS SULFATE 325 MG EC TABLET PO SCH ×3 (06:38→16:51)
[2016-11-24 08:00] VITALS: BP 118/59
[2016-11-24] MEDS: LevETIRAcetam 500 MG TABLET PO SCH ×2 (10:29→16:51)
[2016-11-24] MEDS: BENZTROPINE MESYLATE 1 MG TABLET PO SCH ×2 (10:29→16:51)
[2016-11-24] MEDS: VALPROIC ACID 250 MG CAPSULE PO SCH ×2 (10:29→16:51)
[2016-11-24] MEDS: LITHIUM CITRATE SOLUTION 8 MEQ/5 ML [8 MEQ = 300 MG] UDCUP PO SCH ×2 (10:30→16:51)
[2016-11-24 16:35] VITALS: BP 125/71
[2016-11-24] MEDS: PALIPERIDONE 3 MG ER TABLET PO SCH (21:35)
[2016-11-24] MEDS: TraZODone HCL 100 MG TABLET PO SCH (21:35)
[2016-11-25] MEDS: FERROUS SULFATE 325 MG EC TABLET PO SCH ×3 (06:40→16:47)
[2016-11-25 08:30] VITALS: BP 118/85
[2016-11-25] MEDS: BENZTROPINE MESYLATE 1 MG TABLET PO SCH ×2 (08:58→16:16)
[2016-11-25] MEDS: LITHIUM CITRATE SOLUTION 8 MEQ/5 ML [8 MEQ = 300 MG] UDCUP PO SCH ×2 (08:58→16:16)
[2016-11-25] MEDS: VALPROIC ACID 250 MG CAPSULE PO SCH ×2 (08:58→16:16)
[2016-11-25] MEDS: LevETIRAcetam 500 MG TABLET PO SCH ×2 (08:58→16:16)
[2016-11-25 17:27] VITALS: BP 110/73
[2016-11-25] MEDS: PALIPERIDONE 3 MG ER TABLET PO SCH (20:11)
[2016-11-25] MEDS: TraZODone HCL 100 MG TABLET PO SCH (20:11)
[2016-11-26] MEDS: FERROUS SULFATE 325 MG EC TABLET PO SCH ×3 (06:35→16:32)
[2016-11-26 08:00] VITALS: BP 125/82
[2016-11-26] MEDS: BENZTROPINE MESYLATE 1 MG TABLET PO SCH ×2 (09:17→16:32)
[2016-11-26] MEDS: LITHIUM CITRATE SOLUTION 8 MEQ/5 ML [8 MEQ = 300 MG] UDCUP PO SCH ×2 (09:18→16:32)
[2016-11-26] MEDS: LevETIRAcetam 500 MG TABLET PO SCH ×2 (09:18→16:32)
[2016-11-26] MEDS: VALPROIC ACID 250 MG CAPSULE PO SCH ×2 (09:18→16:32)
[2016-11-26 16:58] VITALS: BP 117/71
[2016-11-26] MEDS: PALIPERIDONE 3 MG ER TABLET PO SCH (20:11)
[2016-11-26] MEDS: TraZODone HCL 100 MG TABLET PO SCH (20:12)
[2016-11-27] MEDS: FERROUS SULFATE 325 MG EC TABLET PO SCH (06:31)
[2016-11-27 08:47] VITALS: BP 125/83
[2016-11-27] MEDS ORDERED: LITH8SOL6 PO (09:01)
[2016-11-27] MEDS ORDERED: PALI3 PO (09:02)
[2016-11-27] MEDS: VALPROIC ACID 250 MG CAPSULE PO SCH (09:04)
[2016-11-27] MEDS: LITHIUM CITRATE SOLUTION 8 MEQ/5 ML [8 MEQ = 300 MG] UDCUP PO SCH (09:04)
[2016-11-27] MEDS: LevETIRAcetam 500 MG TABLET PO SCH (09:04)
[2016-11-27] MEDS: BENZTROPINE MESYLATE 1 MG TABLET PO SCH (09:04)
== END 2016-11-27 10:15 | disposition home or self-care (01) | DRG 750 ==
LOC: EMS 23:37 → AHU 10-10 07:53 → 3EI 10-10 17:17
PROVIDERS: ADMIT Psychiatry & Neurology Psychiatry; ATTEND Psychiatry & Neurology Psychiatry
DX: F25.9 Schizoaffective disorder, unspecified (principal); F79 Unspecified intellectual disabilities; F32.9 Major depressive disorder, single episode, unspecified; G40.909 Epilepsy, unspecified, not intractable, without status epilepticus; D64.9 Anemia, unspecified; G47.00 Insomnia, unspecified; J30.9 Allergic rhinitis, unspecified; F41.9 Anxiety disorder, unspecified; Z88.8 Allergy status to other drugs, medicaments and biological substances; Z79.899 Other long term (current) drug therapy; Z22.322 Carrier or suspected carrier of Methicillin resistant Staphylococcus aureus
CPT/HCPCS: 83036; 84443; 87081; 99285; G0480